=== PATIENT | female | born 1955 | race Caucasian/White ===

== ENCOUNTER 2017-04-08 17:01 | Emergency (ER) | payer SELFPAY ==
[~2017-04-08] VITALS: Ht 205.7 cm; Wt 87.5 kg
[~2017-04-08 17:01] MED LIST: ACEASPCAF PO; ALBU90OI INH; ALBU90OI61 INH; AZIT250 PO; BENZ100A PO; DOXY100 PO; FLUT110OIA IH; FLUT44OIA IH; HYDACE5 PO; IBUP800 PO; LEVSOD100 PO; NAPR500 PO; Naprosyn500 MG PO; PRED20 PO; SULTRIDS PO; Ultram50 MG PO
[2017-04-08] MEDS ORDERED: LEVO-T112 MCG PO (17:20)
== END 2017-04-08 17:23 | disposition home or self-care (01) ==
LOC: ER 17:01
DX: Z76.0 Encounter for issue of repeat prescription (principal); F17.200 Nicotine dependence, unspecified, uncomplicated; Z88.0 Allergy status to penicillin; Z88.5 Allergy status to narcotic agent; Z79.899 Other long term (current) drug therapy; Z90.49 Acquired absence of other specified parts of digestive tract
CPT/HCPCS: 99281

== ENCOUNTER → 2022-05-30 | Outpatient (CLI) | payer MEDICARE ==
[~2022-05-30] MED LIST changes: +LEVO-T112 MCG PO
[2022-05-30 17:41] LABS: BASOPHILS ABSOLUTE AUTO 0.06 K/mm3 (0.00-0.23); BASOPHILS PERCENT AUTO 1 % (0-2); EOSINOPHILS ABSOLUTE AUTO 0.13 K/mm3 (0.00-0.68); EOSINOPHILS PERCENT AUTO 2 % (0-6); Hematocrit 39.6 % (33.0-51.0); Hemoglobin 12.9 g/dL (11.5-16.0); IMMATURE GRAN ABSOLUTE AUTO 0.02 K/mm3 (0.00-0.10); IMMATURE GRAN PERCENT AUTO 0 % (0-1); LYMPHOCYTES ABSOLUTE AUTO 2.66 K/mm3 (0.84-5.20); LYMPHOCYTES PERCENT AUTO 35 % (21-46); MONOCYTES ABSOLUTE AUTO 0.59 K/mm3 (0.16-1.47); MONOCYTES PERCENT AUTO 8 % (4-13); Mean Corpuscular HGB 29.9 pg (26.0-34.0); Mean Corpuscular HGB Conc 32.6 g/dL (31.5-36.5); Mean Corpuscular Volume 92 fL (80-100); Mean Platelet Volume 11.1 fL (9.1-12.4); NEUTROPHILS ABSOLUTE AUTO 4.06 K/mm3 (1.96-9.15); NEUTROPHILS PERCENT AUTO 54 % (41-73); Platelet Count 241 K/mm3 (150-400); RDW Coefficient Variation 13.5 % (11.7-14.2); RDW Standard Deviation 45.7 fL (35.1-46.3); Red Blood Cell Count 4.31 M/mm3 (3.80-5.20); White Blood Cell Count 7.52 K/mm3 (4.00-11.30)
[2022-05-30 18:10] LABS: Free Thyroxine 0.38 ng/dL (0.70-1.60)
[2022-05-30 18:23] LABS: Albumin, Blood 4.1 g/dL (3.4-5.0); Albumin/Globulin Ratio 1.3 (0.8-1.8); Bilirubin, Total 0.3 mg/dL (0.1-1.0); Calcium, Blood 9.2 mg/dL (8.5-10.1); Creatinine, Blood 1.16 mg/dL (0.40-1.00); Globulin, Blood 3.2 g/dL (2.2-4.0); Thyroid Stimulating Hormone 62.8 uIU/mL (0.360-4.800); Total Protein, Blood 7.3 g/dL (6.4-8.2)
== END | disposition home or self-care (01) ==
LOC: LAB SHORT 16:42
PROVIDERS: Nurse Practitioner Family
DX: E03.9 Hypothyroidism, unspecified (principal)
CPT/HCPCS: 80053; 84439; 84443; 85025

== ENCOUNTER 2022-06-30 12:35 | Emergency (ER) | payer MEDICARE ==
[~2022-06-30] VITALS: Ht 172.7 cm; Wt 79.4 kg
[2022-06-30 12:50] VITALS: BP 158/135
[2022-06-30] MEDS ORDERED: Veetids 500500 MG PO (12:54)
== END 2022-06-30 13:16 | disposition home or self-care (01) ==
LOC: ER 12:35
DX: K08.89 Other specified disorders of teeth and supporting structures (principal); Z79.890 Hormone replacement therapy
CPT/HCPCS: 99282

== ENCOUNTER 2023-02-09 10:41 | Emergency (ER) | payer MEDICARE ==
[~2023-02-09] VITALS: Ht 175.3 cm; Wt 68.0 kg
[~2023-02-09 10:41] MED LIST changes: +Veetids 500500 MG PO
[2023-02-09 10:54] VITALS: BP 139/93
[2023-02-09] MEDS ORDERED: IBUP600 PO (13:09)
== END 2023-02-09 13:20 | disposition home or self-care (01) ==
LOC: ER 10:41
DX: S60.021A Contusion of right index finger without damage to nail, initial encounter (principal); F17.200 Nicotine dependence, unspecified, uncomplicated; Z88.0 Allergy status to penicillin; Z88.5 Allergy status to narcotic agent; Z79.890 Hormone replacement therapy; W22.8XXA Striking against or struck by other objects, initial encounter
CPT/HCPCS: 73140; 99283-25; A9270